=== PATIENT | female | born 1950 | race Caucasian/White ===

== ENCOUNTER 2020-06-02 13:39 | Outpatient (CLI) | payer MEDICARE, SELFPAY ==
--- NOTE | 2020-06-02 13:48 | MM_ITS ---
WS: [id number] BILATERAL DIGITAL SCREENING MAMMOGRAM WITH CAD CLINICAL INFORMATION: SCREENING HISTORY: Screening mammogram. No current complaints. COMPARISON: None. TECHNIQUE: Bilateral CC and MLO views. FINDINGS: Fatty-replaced breasts bilaterally. No suspicious focal mass, asymmetry, calcifications, or principal technical architect ural distortion. No evidence of malignancy. Punctate calcifications MM/[place] [id number] IMPRESSION: BI-RADS: 2-Benign FOLLOW UP: 1 Year Follow-up Recommend return to annual screening mammography.
== END 2020-06-02 13:40 | disposition home or self-care (01) ==
LOC: RADSHAW 13:44
PROVIDERS: PCP Nurse Practitioner Family; Visit Provider Nurse Practitioner Family
DX: Z12.31 Encounter for screening mammogram for malignant neoplasm of breast (principal)
CPT/HCPCS: 77067

== ENCOUNTER 2022-02-18 10:09 | Outpatient (CLI) | payer MEDICARE, SELFPAY ==
--- NOTE | 2022-02-18 10:33 | MM_ITS ---
WS: [id number] BILATERAL SCREENING DIGITAL TOMOSYNTHESIS MAMMOGRAM WITH CAD HISTORY: Screening. COMPARISON: 06/02/2020 Bilateral CC and MLO views with tomosynthesis and synthetic mammography submitted. Computer aided det ection analyzed. Breast composition: There are scattered areas of fibroglandular density. No suspicious masses, microc alcifications or architectural distortion. Benign calcifications. Asymmetry in the upper-outer quadra nt of the RIGHT breast is unchanged. MM/[place] [id number] IMPRESSION: BI-RADS: 2-Benign FOLLOW UP: 1 Year Follow-up
== END 2022-02-18 10:10 | disposition home or self-care (01) ==
LOC: RAD 10:10
PROVIDERS: PCP Nurse Practitioner Family; Visit Provider Family Medicine
DX: Z12.31 Encounter for screening mammogram for malignant neoplasm of breast (principal)
CPT/HCPCS: 77063; 77067

== ENCOUNTER → 2022-07-07 14:05 | Outpatient (BNVA) | payer MEDICARE, SELFPAY | PROVIDERS: PCP Nurse Practitioner Family; Visit Provider Surgery | DX: Z12.11 Encounter for screening for malignant neoplasm of colon (principal) | CPT/HCPCS: 99024; 99203 ==

== ENCOUNTER 2022-08-04 07:01 | Day surgery (SDC) | payer MEDICARE, SELFPAY ==
[2022-08-02 08:57] VITALS: BMI 36.5
[2022-08-04 07:27] VITALS: BP 146/82; PULSE 79; RESP 18; TEMP 36.3; O2SAT 96
[2022-08-04] MEDS: sodium chloride 0.9% 1,000 ML 30 ML IV (07:34)
--- NOTE | 2022-08-04 08:00 | ANES.PREANE2 ---
Pre-Anesthetic Assessment Height/Weight: Height 1.6 m Weight 93.44 kg Temp Pulse Resp BP Pulse Ox O2 Del Method 97.4 F L 79 18 146/82 96 08/04/22 07:27 08/04/22 07:27 08/04/22 07:27 08/04/22 07:27 08/04/22 07:27 08/04/22 07:27 Operation Date: 08/04/22 08:30 [place] p [id number] COLON Z12.11(Not Applicable) - Miller Alonso, DO Was Beta Xochilt taken within 24 hours: N/A Was Clonidine taken within 24 hours: N/A Last intake: Intake Last Liquid Date 08/03/22 Last Liquid Time 22:00 Last Solid Date 08/02/22 Last Solid Time 20:00 Social No alcohol and No tobacco Exam alert, oriented x 3, clear to auscultation bilaterally and regular rate & rhythm Airway Submandibular: within normal limits Cervical ROM: within normal limits Mallampati: Class II Dentition: full Comments: Comments: implants upper, bridge on the right, none loose History/ROS No significant history except as noted and No significant complaints Pulmonary None reported CV/HEM Hypertension None reported Hepatic None reported GI None reported Metabolic Hyperlipidemia [facility] [place] [facility] [place] None reported Neuropsych None reported Anesthetic Plan ASA status: 2 Anesthesia: Anesthesia Evaluation and MAC Risk of > 500 ml blood loss (7ml/kg in children): Yes, adequate IV access and fluids planned Medications/Allergies Home Medications Medication Instructions Recorded Confirmed Last Taken Type pravastatin 10 mg tablet 10 mg PO DAILY 04/15/20 08/02/22 08/03/22 History lisinopril 20 1 tab PO DAILY 07/07/22 08/02/22 08/03/22 History mg-hydrochlorothiazide 12.5 mg tablet oxybutynin chloride 10 mg 10 mg PO DAILY 07/07/22 08/02/22 08/03/22 History tablet,extended release 24 hr Allergies Allergy/AdvReac Type Severity Reaction Status Date / Time No Known Allergies Allergy Verified 08/02/22 08:55 Current Medications Generic Name Dose Route Start Last Admin Trade Name Freq PRN Reason Stop Dose Admin Sodium Chloride 1,000 mls @ 30 mls/hr 08/04/22 07:15 08/04/22 07:34 Sodium Chloride 0.9% IV 08/05/22 07:14 30 mls/hr .Q24H TALYA Administration PFSH Anesthesia Medical History Arthritis Depression History of nonmelanoma skin cancer Hyperlipidemia Surgical History History of basal cell carcinoma excision right eye History of laparoscopic cholecystectomy Family History Other No pertinent family history Social History Smoking and tobacco status: never smoked Alcohol intake: never Data Anesthesia Cardiac Studies: No Data to Display
--- NOTE | 2022-08-04 09:20 | W.PM.OPSUD ---
Surgery/Procedure H&P Update DATE OF PROCEDURE: August 04, 2022 DATE H&P PERFORMED: 07/07/22 H&P UPDATE INFORMATION: I have reviewed H&P completed within last 30 days, I have examined patient prior to procedure and No changes to prior documentation PLANNED PROCEDURE: Operation Date: 08/04/22 08:30 Proposed Procedures p [id number] COLON Z12.11(Not Applicable) - Miller Alonso DO
[2022-08-04 09:45] VITALS: BP 125/61; PULSE 67; RESP 18; TEMP 36.1; O2SAT 96
[2022-08-04 10:00] VITALS: BP 138/69; PULSE 64; RESP 18; O2SAT 98
--- NOTE | 2022-08-04 16:40 | ANE.PACU2 ---
Inpatient post-anesthesia follow up: Airway intact: Yes Vital signs: Temperature 97 F Pulse Rate 64 Respiratory Rate 18 Blood Pressure 138/69 Pulse Oximetry 98 Oxygen Delivery Me thod Room Air Oxygen Flow Rate Fraction of Inspir ed Oxygen Hydration adequate: Yes Nausea and vomiting: No Pain level: 2 Mental status: Baseline
== END 2022-08-04 10:25 | disposition home or self-care (01) ==
PROVIDERS: PCP Family Medicine; Visit Provider Surgery
PROC: 0DJD8ZZ Inspection of Lower Intestinal Tract, Via Natural or Artificial Opening Endoscopic (ICD-10-PCS; CPT 45378; principal; 2022-08-04 08:30)
DX: Z12.11 Encounter for screening for malignant neoplasm of colon (principal); K57.30 Diverticulosis of large intestine without perforation or abscess without bleeding; I10 Essential (primary) hypertension; E78.5 Hyperlipidemia, unspecified; M19.90 Unspecified osteoarthritis, unspecified site
CPT/HCPCS: G0121; J2704; J7030

== ENCOUNTER → 2023-02-24 13:13 | Outpatient (BNVA) | payer MEDICARE, SELFPAY | PROVIDERS: PCP Family Medicine; Visit Provider Nurse Practitioner Family | DX: Z85.828 Personal history of other malignant neoplasm of skin (principal); L57.0 Actinic keratosis; L82.1 Other seborrheic keratosis; L82.0 Inflamed seborrheic keratosis; D22.5 Melanocytic nevi of trunk; L57.8 Other skin changes due to chronic exposure to nonionizing radiation; L81.4 Other melanin hyperpigmentation | CPT/HCPCS: 17000; 17110; 99213 ==

== ENCOUNTER 2023-05-27 10:14 | Outpatient (CLI) | payer MEDICARE, SELFPAY ==
--- NOTE | 2023-05-27 10:17 | MM_ITS ---
WS: [id number] BILATERAL SCREENING DIGITAL TOMOSYNTHESIS MAMMOGRAM WITH CAD HISTORY: SCREENING COMPARISON: 02/18/2022 and 06/02/2020 Bilateral CC and MLO views with tomosynthesis and synthetic mammography submitted. Computer aided det ection analyzed. Breast composition: There are scattered areas of fibroglandular density. No suspicious masses, microc alcifications or architectural distortion. Benign calcifications LEFT breast. IMPRESSION: MM/[place] [id number] BI-RADS: 2-Benign FOLLOW UP: 1 Year Follow-up
== END 2023-05-27 10:15 | disposition home or self-care (01) ==
LOC: RAD 10:14
PROVIDERS: PCP Family Medicine; Visit Provider Family Medicine
DX: Z12.31 Encounter for screening mammogram for malignant neoplasm of breast (principal); R92.323 Mammographic fibroglandular density, bilateral breasts; R92.1 Mammographic calcification found on diagnostic imaging of breast
CPT/HCPCS: 77063; 77067

== ENCOUNTER → 2024-03-19 08:20 | Outpatient (BNVA) | payer MEDICARE, BC, SELFPAY | PROVIDERS: PCP Family Medicine; Visit Provider Dermatology | DX: C44.311 Basal cell carcinoma of skin of nose (principal) | CPT/HCPCS: 17311 ==

== ENCOUNTER 2024-08-20 11:20 | Outpatient (CLI) | payer MEDICARE, SELFPAY ==
--- NOTE | 2024-08-20 11:24 | MM_ITS ---
WS: [id number] BILATERAL 3D TOMOSYNTHESIS DIGITAL SCREENING MAMMOGRAPHY WITH CAD CLINICAL INFORMATION: SCREENING HISTORY: Screening mammogram. No current complaints. COMPARISON: 2023 TECHNIQUE: Bilateral CC and MLO views. FINDINGS: Scattered fibroglandular densities bilaterally. No suspicious focal mass, asymmetry, calcifications, or architectural distortion. No evidence of malignancy. A few incidental punctate calcifications. MM/MM scr tomosynthesis [id number] IMPRESSION: DENSITY: There are scattered areas of fibroglandular density. BI-RADS: 2 - Benign. FOLLOW UP: 1 Year Follow-up Recommend return to annual screening mammography.
== END 2024-08-20 11:21 | disposition home or self-care (01) ==
LOC: RAD 11:22
PROVIDERS: PCP Family Medicine; Visit Provider Family Medicine
DX: Z12.31 Encounter for screening mammogram for malignant neoplasm of breast (principal); R92.323 Mammographic fibroglandular density, bilateral breasts; R92.1 Mammographic calcification found on diagnostic imaging of breast
CPT/HCPCS: 77063; 77067

== ENCOUNTER → 2024-08-28 14:53 | Outpatient (BNVA) | payer MEDICARE, SELFPAY | PROVIDERS: PCP Family Medicine; Visit Provider Nurse Practitioner Family | DX: L82.1 Other seborrheic keratosis (principal); D22.5 Melanocytic nevi of trunk; L57.8 Other skin changes due to chronic exposure to nonionizing radiation; L81.4 Other melanin hyperpigmentation; H02.102 Unspecified ectropion of right lower eyelid; Z08 Encounter for follow-up examination after completed treatment for malignant neoplasm; Z85.828 Personal history of other malignant neoplasm of skin; S40.862A Insect bite (nonvenomous) of left upper arm, initial encounter | CPT/HCPCS: 10120; 99213 ==